=== PATIENT | male | born 1955 | race Caucasian/White ===

== ENCOUNTER 2024-06-25 13:32 | Outpatient (AMB) | payer MEDICARE, SELFPAY ==
--- NOTE | 2024-06-25 13:38 | MHC.OFFWIV ---
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 C/o Cough, chest/Nasal congestion, Fevers, Wheezing, SOB and headaches. Reports h/o Asthma, has been using his Rescue inhaler more than usual with minimal relief. [facility] Medical History (Updated 06/25/24 @ 14:08 by Janice Luna NP) Asthma with acute exacerbation Acute respiratory disease Social History Patient Tobacco Use Status: Never used Tobacco Review of Systems Const All systems reviewed & are unremarkable except as noted in HPI and below Physical Exam Vital Signs: Last Vital Signs Temp 100.3 F 06/25/24 13:43 Pulse 86 06/25/24 13:43 BP 110/72 06/25/24 13:43 Pulse Ox 97 06/25/24 13:43 BMI result Body Mass Index 29.5 Const General: no acute distress; No comfortable Nutritional Appearance: obese Orientation/consciousness: patient oriented x3 HEENT Head: Yes normocephalic Ears: external ears normal and TM abnormal with fluid behind the TM bilateral General nose exam: Abnormal mucous membranes and turbinates present boggy and erythematous and Nasal discharge present Face and sinus: Yes normal facial exam, Yes sinus tenderness and Yes other (Sinus congestion. ) Mouth: moist mucous membranes Throat: Yes uvula midline and Yes abnormal tonsil (Enlarged Tonsils +3) Resp Effort & Inspection: normal respiratory effort, able to speak in complete sentences, no audible wheezes and Actively coughing Auscultation: clear to auscultation bilaterally, no crackles, no rales, no rhonchi and no wheezes Cardio Rate: regular rate Heart sounds: S1 normal heart sound present and S2 normal heart sound present Neuro General: patient oriented x3, gait normal and moves all extremities Psych Speech and movement: Normal speech and movement present Assessment & Plan Assessment & Plan (1) Acute respiratory disease: Code(s): J06.9 - Acute upper respiratory infection, unspecified Plan: Ordered SARs Ordered Zpack Ordered Afrin, Sudafed Continue using Albuterol rescue inhaler as directed. Acetaminophen for pain and fever relief Rest and hydrate well with warm fluids. (2) Asthma with acute exacerbation: Code(s): J45.901 - Unspecified asthma with (acute) exacerbation Qualifiers: Asthma persistence: persistent Asthma severity: moderate Qualified Code(s): J45.41 - Moderate persistent asthma with (acute) exacerbation Plan: Ordered SARs Ordered Zpack Ordered Afrin, Sudafed Continue using Albuterol rescue inhaler as directed. Acetaminophen for pain and fever relief Rest and hydrate well with warm fluids. Orders: Orders SARS-CoV2/FLU/RSV Today J06.9 - Acute upper respiratory infection, unspecified Medications: New pseudoephedrine HCl ER (Sudafed 12 Hour) 120 mg PO Q12H 20 tabs 0RF Nasal congestion 10 days J06.9 - Acute upper respiratory infection, unspecified acetaminophen 1,000 mg (2 x 500 mg) PO Q6-8H PRN 30 caps 0RF pain and fever J06.9 - Acute upper respiratory infection, unspecified azithromycin 500 mg PO DAILY 3 tabs 0RF 3 days J06.9 - Acute upper respiratory infection, unspecified, J45.41 - Moderate persistent asthma with (acute) exacerbation prednisone 50 mg PO DAILY 5 tabs 0RF 5 days J45.41 - Moderate persistent asthma with (acute) exacerbation oxymetazoline 0.05% (Afrin (oxymetazoline)) 2 sprays intranasal Q12H PRN 15 mL 0RF nasal congestion 3 days J06.9 - Acute upper respiratory infection, unspecified Coding Level of Care Code New Pt Level 4 (42110) Diagnoses Acute respiratory disease J06.9 Moderate persistent asthma with acute exacerbation J45.41 Asthma persistence: persistent Asthma severity: moderate Time Spent (min) 20
[2024-06-25 13:43] VITALS: BP 110/72; PULSE 86; TEMP 37.9; O2SAT 97; BMI 29.5
--- OUTSIDE RECORDS SUMMARY | 2024-06-25 16:29 | XMS_ITS | Clinical Summary ---
Author Organization [facility] it Address [address] [place] [address] Care Team Providers Care Freight Trucker Name Role Phone Elver Guevara MD Primary Care Provider [phone] Allergies Active Allergy Reactions Criticality Noted Date Comments Atorvastatin Pain 07/19/2022 Naproxen Nausea And Vomiting 01/14/2015 Peanut Anaphylaxis High 09/13/2017 Medications acetaminophen (TYLENOL 8 HOUR) 650 mg 8 hr tablet Take 1 Tablet by mouth daily as needed. Active ezetimibe (ZETIA) 10 mg tablet Take 1 tablet (10 mg total) by mouth 1 (one) time each day. 4 Active meclizine (ANTIVERT) 25 mg tablet Take 1 Tablet by mouth every 8 hours as needed (dizziness/vert igo). Medication may cause drowsiness, do not drive/operate machinery while taking 4 Active Active Problems Problem Noted Date Diagnosed Date Vertigo 12/18/2023 COVID-19 06/24/2020 Elevated bilirubin 05/31/2017 Elevated glucose 05/31/2017 Chronic left shoulder pain 02/20/2017 Nephrolithiasis 02/20/2017 Plantar fasciitis 02/20/2017 Pure hypercholesterolemia 02/20/2017 Immunizations Name Administration Dates Next Due Influenza Quadravalent, MDCK , 0.5ml, preservative free (Flucelvax) 6mo and older 03/17/2018 Influenza Quadravalent, MDCK , 0.5ml, with preservative (Flucelvax) 6mo and older 02/20/2017 Influenza trivalent, 0.5mL ( Fluad) 65yo and older 06/19/2023,02/07/2022,03/22/2021,01/18,02/25/2019 Influenza, Unspecified 02/20/2011 Pfizer SARS-CoV-2 COVID-19, mRNA, LNP-S, preservative free 06/02/2021 Pneumococcal conjugate 13 va lent (Prevnar 13, PCV13) 2mo and older 01/19/2020 Pneumococcal polysaccharide 23 valent (Pneumovax 23) 2yo and older 06/12/2021,02/20/2011,2010 TD, Adsorbed, Preservative Free 09/20/2001 Td Tetanus diptheria (Tdvax) 7yo and older 05/30/2020 Tdap Tetanus diptheria acell ular pertussis (Boostrix; Adacel) 7yo and older 02/20/2011,2010 Zoster recombinant (Shingrix ) 19yo and older 07/25/2022,02/07/2022 Surgical History Surgery Date Site/Laterality Comments SHOULDER SURGERY Right PROCEDURE: HISTORICAL SHOULDER SURGERY HERNIA REPAIR Left PROCEDURE: HISTORICAL HERNIA REPAIR/ING LITHOTRIPSY PROCEDURE: HISTORICAL LITHOTRIPSY COLONOSCOPY 09/13/2017 PROCEDURE: HISTORICAL COLONOSCOPY; COMMENT: Negative screening examination. Due 2024 COLONOSCOPY 12/04/2012 PROCEDURE: HISTORICAL COLONOSCOPY; COMMENT: Yaya; 2 mm tubular adenoma sigmoid colon. (Path# [id number]) COLONOSCOPY 09/14/2004 PROCEDURE: HISTORICAL COLONOSCOPY; COMMENT: [email or web address]; no polyps. Medical History Medical History Date Comments Hyperlipidemia DX:Hyperlipidemi a Family History Medical History Relation Name Comments Lymphoma Father Other: hypercholesteremia Mother Stroke Mother stroke at age 8 9 Hyperlipidemia Sister Relation Name Status Comments Father Mother Alive Sister Social History Tobacco Use Types Packs/Day Years Used Date Smoking Tobacco: Never Smokeless Tobacco: Never Alcohol Use Standard Drinks/Week Comments Yes 0 (1 standard drink = 0.6 oz pur e alcohol) Sex and Gender Information Value Date Recorded Sex Assigned at Not on file Legal Sex Male 8:08 PM EST Gender Identity Not on file Sexual Orientation Not on file Obstetrics History Last Filed Vital Signs Vital Sign Reading Time Taken Comments Blood Pressure 112/80 12/18/2023 7:58 AM EDT Sitting R Arm Pulse 61 12/18/2023 7:37 AM EDT Temperature - - Respiratory Rate - - Oxygen Saturation - - Inhaled Oxygen Concentration - - Weight 90 kg (198 lb 6.4 oz) 12/18/2023 7:37 AM EDT Height 177.8 cm (5' 10 ) 12/18/2023 7: 37 AM EDT Body Mass Index 28.47 12/18/2023 7:37 AM EDT Plan of Treatment Health Maintenance Due Date Last Done Comments Depression Screening 03/31/2022 Falls Risk Assessment 03/31/2022 Social Influencers of Health Screening 03/31/2022 COVID-19 Vaccine ( season) 2023 06/02/2021, 05/02/2021, 09/25/2020, Additional history exists Influenza Vaccine (#1) 2023 , 02/07/2022, 03/22/2021, Additional history exists Medicare Annual Wellness Visit 12/26/2023 12/25/2022 Colorectal Cancer Screening: Colonoscopy 09/13/2024 09/13/2017 RSV Immunization Patients 60+ Years Old (1 - 1-dose 75+ series) 2028 Cholesterol Screening (Lipid Panel) 09/03/2028 09/04/2023, 09/04/2023 DTaP,Tdap,and Td Vaccines (4 - Td or Tdap) 05/30/2030 05/30/2020, 02/20/2011, 2010, Additional history exists Hepatitis C Screening Completed 03/25/2017 Pneumococcal Vaccine: 50+ Years Completed 06/12/2021, 01/19/2020, 02/20/2011, Additional history exists Zoster Vaccines Completed 07/25/2022, 02/07/2022 HIB Vaccines Aged Out No longer eligi ble based on patient's age to complete this topic HPV Vaccines Aged Out No longer eligi ble based on patient's age to complete this topic Hepatitis A Vaccines Aged Out No long er eligible based on patient's age to complete this topic Hepatitis B Vaccines Aged Out No long er eligible based on patient's age to complete this topic IPV Vaccines Aged Out No longer eligi ble based on patient's age to complete this topic MMR Vaccines Aged Out No longer eligi ble based on patient's age to complete this topic Meningococcal ACWY Vaccine Aged Out N o longer eligible based on patient's age to complete this topic Meningococcal B Vacine Aged Out No lo nger eligible based on patient's age to complete this topic RSV Immunization Patients Under 20 months Aged Out No longer eligible based on patient's age to complete this topic Varicella Vaccines Aged Out No longer eligible based on patient's age to complete this topic Procedures Procedure Name Priority Date/Time Associated Diagnosis Comments LIPID PANEL Routine 09/04/2023 COLONOSCOPY Routine 09/13/2017 HEPATITIS C SCREENING Routine 03/25/2017 from Last 3 Months or Most Recently Relevant to Health Maintenance Results * (ABNORMAL) Lipid panel (09/04/2023) LDL/HDL Ratio 4 0 - 4 Triglycerides 106 0 - 150 mg/dL Cholesterol 216(A) 0 - 200 mg/dL HDL 61 >=40 mg/dL LDL Cholesterol 134(A) 0 - 100 mg/dL Blood Venous blood specimen / Unknown Historical Provider LAB BLOOD ORDERABLES Bridgette l Result * Colonoscopy (09/13/2017) Colonoscopy no interpretation , abstracted Anatomical Region Laterality Modality Other Historical Provider HEALTH MAINTENANCE Final Result * Hepatitis C Screening (03/25/2017) Hepatitis C Screening abstracted Historical Provider HEALTH MAINTENANCE Final Result from Last 3 Months or Most Recently Relevant to Health Maintenance Care Teams Freight Trucker Relationship Specialty Start Date End Date Elver Guevara MD [address] [place] [id number] PCP - General Internal Medicine 02/13/17
== END 2024-06-25 14:13 | disposition home or self-care (01) ==
PROVIDERS: Visit Provider Nurse Practitioner Family
DX: J06.9 Acute upper respiratory infection, unspecified (principal); J45.41 Moderate persistent asthma with (acute) exacerbation

== ENCOUNTER 2024-06-25 13:32 | Outpatient (REF) | payer MEDICARE, SELFPAY ==
--- OUTSIDE RECORDS SUMMARY | 2024-06-25 17:20 | XMS_ITS | Clinical Summary ---
Author Organization [facility] it Address [address] [place] [address] Care Team Providers Care Geriatric Social Work Professor Name Role Phone Elver Guevara MD Primary Care Provider [phone] Allergies Active Allergy Reactions Criticality Noted Date [...] 2 mm tubular adenoma sigmoid colon. (Path# [id number]) COLONOSCOPY 09/14/2004 PROCEDURE: HISTORICAL COLONOSCOPY; COMMENT: [email or web address]; no polyps. Medical History Medical History Date [...] Recently Relevant to Health Maintenance Care Teams Geriatric Social Work Professor Relationship Specialty Start Date End Date Elver Guevara MD [address] [place] [id number] PCP - General Internal Medicine 02/13/17
[2024-06-25 18:35] LABS: Influenza A PCR POSITIVE (Negative); Influenza B PCR NEGATIVE (Negative); Resp Syncy Virus RNA Qual PCR NEGATIVE (Negative); SARS COV2 PCR INHOUSE NEGATIVE (Negative)
== END 2024-06-25 13:33 | disposition home or self-care (01) ==
LOC: HO.LAB 13:32
PROVIDERS: Visit Provider Nurse Practitioner Family
DX: J06.9 Acute upper respiratory infection, unspecified (principal); J45.41 Moderate persistent asthma with (acute) exacerbation
CPT/HCPCS: 0241U; 99202